=== PATIENT | male | born 2000 | race Caucasian/White ===

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

== ENCOUNTER 2024-02-01 15:18 | Emergency (ER) | payer BC, SELFPAY ==
[2024-02-01 15:19] VITALS: BP 130/89; PULSE 97; RESP 14; TEMP 36.6; O2SAT 98; BMI 19.6
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
[2024-02-01] MEDS: HYDROcodone Bitartrate/Apap 5/325 Tablet PO (15:33)
--- NOTE | 2024-02-01 15:40 | RAD_ITS ---
EXAM: XR LEFT CLAVICLE COMPLETE, 2 OR MORE VIEWS CLINICAL INDICATION: Injury/Pain TECHNIQUE: Frontal and lordotic views of the left clavicle. COMPARISON: No relevant prior studies available. FINDINGS: BONES/JOINTS: Comminuted mid left clavicle fracture. Preservation of the joint space. No sclerotic or destructive changes observed. SOFT TISSUES: Unremarkable. No soft tissue swelling or gas. No radiopaque foreign body. RAD/Clavicle IMPRESSION: Comminuted mid left clavicle fracture. Electronically Signed: Colt Tabares MD at 16:18 EDT ,
[2024-02-01 16:22] VITALS: BP 124/72; PULSE 74; RESP 18; TEMP 36.7; O2SAT 100
== END 2024-02-01 16:24 | disposition home or self-care (01) ==
PROVIDERS: Emergency Provider Emergency Medicine; PCP Pediatrics; Visit Provider Emergency Medicine
DX: S50.312A Abrasion of left elbow, initial encounter (principal); S42.002A Fracture of unspecified part of left clavicle, initial encounter for closed fracture; S40.812A Abrasion of left upper arm, initial encounter; V29.888A Rider (driver) (passenger) of other motorcycle injured in other specified transport accidents, initial encounter
CPT/HCPCS: 73000; 99283